=== PATIENT | male | born 1970 | race African-American/Black ===

== ENCOUNTER 2017-05-20 12:11 | Emergency (ER) | payer OTHER ==
[~2017-05-20] VITALS: Ht 165.1 cm; Wt 63.5 kg
[~2017-05-20 12:11] MED LIST: NAPROSYN500 MG PO; NOHOMEMEDICATIONS; TRAMADOL 50 MG50 MG PO
[2017-05-20 12:47] LABS: URINE BILIRUBIN NEGATIVE (Negative); URINE BLOOD NEGATIVE (Negative); URINE CLARITY CLEAR; URINE COLOR YELLOW; URINE GLUCOSE-RANDOM* NEGATIVE (Negative); URINE KETONES NEGATIVE (Negative); URINE LEUKOCYTES NEGATIVE (Negative); URINE NITRITE NEGATIVE (Negative); URINE PROTEIN (DIPSTICK) NEGATIVE (Negative); URINE SPECIFIC GRAVITY 1.025 (1.005-1.035)
[2017-05-20 12:55] LABS: BASOPHILS 0.5 % (0.0-2.0); EOSINOPHILS 0.9 % (0.0-3.0); HEMATOCRIT 41.4 % (42.0-52.0); HEMOGLOBIN 13.6 gm/dL (14.0-18.0); LYMPHOCYTES 21.2 % (24.0-44.0); MCH 25.2 pg (26.0-34.0); MCHC 32.9 g/dL (28.0-37.0); MCV 76.5 fL (80.0-100.0); MONOCYTES 6.6 % (1.0-8.0); PLATELET COUNT 153 thou/uL (150-400); POLYS 70.8 % (36.0-66.0); RBC 5.41 mil/uL (4.50-6.00); RDW 17.6 % (10.5-14.5); WBC 5.6 thou/uL (4.0-11.0)
[2017-05-20 13:09] LABS: CREATININE 1.1 mg/dL (0.7-1.3); POTASSIUM 4.1 mmol/L (3.5-5.1)
[2017-05-20 13:13] LABS: ALBUMIN 3.9 g/dL (3.4-5.0); TOTAL PROTEIN 7.3 g/dL (6.4-8.2)
[2017-05-20] MEDS ORDERED: DOXYCYCLINE 10100 MG PO ×2 (13:44→14:03)
[2017-05-20 14:17] VITALS: BP 117/75
== END 2017-05-20 14:10 | disposition home or self-care (01) ==
LOC: ER 12:11
PROVIDERS: Physician Assistant
DX: N45.1 Epididymitis (principal)